=== PATIENT | male | born 1970 | race Caucasian/White ===

== ENCOUNTER 2017-04-06 19:38 | Emergency (ER) | payer BC ==
[2017-04-06] MEDS ORDERED: BABY ASPIRIN 81 MG CHEW PO ONE (19:54)
--- NOTE | 2017-04-06 19:54 | ERPHSYRPT ---
- History of Present Illness Time Seen by Provider: 04/06/17 19:50 Historian: patient Exam Limitations: no limitations Physician History: pt has hs of ablation for v tach about one year ago - no stents normal cath per pt hx no CP now but had felt like a recurrence of arrythmia ; no symptoms now ; CP was brief at time of palpitations Activities at Onset: none Quality: tightness Location: substernal Chest Pain Radiation: no radiation Severity of Pain-Max: mild Severity of Pain-Current: mild Modifying Factors: Improves With: nothing Associated Symptoms: palpitations Prior Chest Pain/Cardiac Workup: cardiac cath, recently seen/treated Nitro Today/Relief: no nitro taken today, complete relief Aspirin Treatment Today: 325 mg x 1, provided by ED Allergies/Adverse Reactions: No Known Drug Allergies Allergy (Verified 04/06/17 19:57) Home Medications: Simvastatin 20 mg PO HS 05/12/14 [History] Propafenone HCl [Propafenone HCl ER] 225 mg PO BID 04/12/16 [History] Clonazepam [Klonopin] 1 mg PO Q6HPRN PRN 04/06/17 [History] Hx Tetanus, Diphtheria Vaccination/Date Given: Yes Hx Influenza Vaccination/Date Given: Yes Hx Pneumococcal Vaccination/Date Given: Yes - Review of Systems Constitutional: No Fever, No Chills Eyes: No Symptoms Ears, Nose, & Throat: No Symptoms Respiratory: No Cough, No Dyspnea Cardiac: Chest Pain (resolved), Palpitations, No Edema, No Syncope Abdominal/Gastrointestinal: No Abdominal Pain, No Nausea, No Vomiting, No Diarrhea Genitourinary Symptoms: No Dysuria Musculoskeletal: No Back Pain, No Neck Pain Skin: No Symptoms, No Rash Neurological: No Symptoms, No Dizziness, No Focal Weakness, No Sensory Changes Psychological: No Symptoms Endocrine: No Symptoms Hematologic/Lymphatic: No Symptoms All Other Systems: Reviewed and Negative - Past Medical History Pertinent Past Medical History: No Neurological History: Epilepsy ENT History: No Pertinent History Cardiac History: Other Respiratory History: No Pertinent History Endocrine Medical History: No Pertinent History Musculoskeletal History: No Pertinent History GI Medical History: No Pertinent History History: No Pertinent History Psycho-Social History: No Pertinent History Male Reproductive Disorders: No Pertinent History Other Medical History: HX OF ELBOW SURGURY (CUBITAL TUNNEL) 2 YEARS AGO AND 1 YEAR AGO HAD TACHICARDIA WITH ABLASION. - Past Surgical History Past Surgical History: Yes Neuro Surgical History: No Pertinent History Cardiac: Other Respiratory: No Pertinent History Gastrointestinal: Hemorrhoidectomy, Hernia Repair Genitourinary: No Pertinent History Musculoskeletal: Other Male Surgical History: No Pertinent History Other Surgical History: right elbow - Social History Smoking Status: Never smoker Exposure to second hand smoke: No Drug Use: none Patient Lives Alone: No - Nursing Vital Signs Nursing Vital Signs: Initial Vital Signs Temperature 97.9 F 04/06/17 19:39 Pulse Rate 72 04/06/17 19:39 Respiratory Rate 20 04/06/17 19:39 Blood Pressure 146/89 04/06/17 19:39 O2 Sat by Pulse Oximetry 98 04/06/17 19:39 Pain Scale Pain Intensity 5 - Physical Exam General Appearance: no apparent distress, alert Eye Exam: PERRL/EOMI, eyes nml inspection Ears, Nose, Throat Exam: normal ENT inspection, moist mucous membranes Neck Exam: normal inspection, non-tender, supple, full range of motion Respiratory Exam: normal breath sounds, lungs clear, No respiratory distress Cardiovascular Exam: regular rate/rhythm, normal heart sounds Gastrointestinal/Abdomen Exam: soft, No tenderness, No mass Back Exam: normal inspection, No CVA tenderness, No vertebral tenderness Extremity Exam: normal inspection, normal range of motion Neurologic Exam: alert, oriented x 3, cooperative, normal mood/affect, sensation nml, No motor deficits Skin Exam: normal color, warm, dry - Course Nursing assessment & vital signs reviewed: Yes EKG Interpreted by Me: Sinus Rhythm, NORMAL AXIS, NORMAL INTERVALS, NORMAL QRS, Non-specific ST Changes - Radiology Exams Chest X-ray Interpretation: Reviewed by me (appears neg) Ordered Tests: Active Orders 24 hr Category Date Time Status Pretzel Packer STAT Care 04/06/17 19:56 Active EKG-ER Only STAT Care 04/06/17 19:54 Active IV Insertion STAT Care 04/06/17 19:54 Active Pulse Oximetry (ED) STAT Care 04/06/17 19:54 Active CHEST 1 VIEW (PORTABLE) Stat Exams 04/06/17 19:56 Taken CBC W DIFF Stat Lab 04/06/17 20:00 Completed CK-Creatinine Phosphokinase Stat Lab 04/06/17 20:00 Completed CMP Stat Lab 04/06/17 20:00 Completed NT PRO BNP Stat Lab 04/06/17 20:00 Completed TROPONIN Q3H Lab 04/06/17 20:00 Completed TROPONIN Q3H Lab 04/06/17 23:00 Ordered TROPONIN Q3H Lab 04/07/17 02:00 Ordered TROPONIN Q3H Lab 04/07/17 05:00 Ordered TROPONIN Q3H Lab 04/07/17 08:00 Ordered Medication Summary Generic Name Dose Route Start Last Admin Trade Name Damian PRN Reason Stop Dose Admin Sodium Chloride 1,000 mls @ 50 mls/hr 04/06/17 20:00 04/06/17 20:17 Sodium Chloride 0.9% 1000 Ml IV 05/06/17 19:59 50 mls/hr .Q20H ADITI Administration Discontinued Medications Generic Name Dose Route Start Last Admin Trade Name Freq PRN Reason Stop Dose Admin Aspirin 324 mg 04/06/17 19:54 04/06/17 20:16 Baby Aspirin 81 Mg Chew PO 04/06/17 19:55 324 mg STAT ONE Administration Aspirin Confirm 04/06/17 20:14 Baby Aspirin 81 Mg Chew Administered 04/06/17 20:15 Dose 324 mg .ROUTE .STK-MED ONE Lab/Rad Data: Laboratory Result Diagrams 04/06/17 20:00 04/06/17 20:00 Laboratory Results 04/06/17 04/06/17 04/06/17 Range/Units 20:00 20:00 20:00 WBC 5.7 (4.0-10.5) K/mm3 RBC 5.06 (4.1-5.6) M/mm3 Hgb 14.6 (12.5-18.0) gm/dl Hct 42.5 (42-50) % MCV 84.0 (78-100) fl MCH 28.9 (26-32) pg MCHC 34.4 (32-36) g/dl RDW 12.8 (11.5-14.0) % Plt Count 201 (150-450) K/mm3 MPV 11.1 H (6-9.5) fl Gran % 50.3 (36.0-66.0) % Lymphocytes % 37.7 (24.0-44.0) % Monocytes % 9.6 (0.0-12.0) % Eosinophils % 1.9 (0.00-5.0) % Basophils % 0.5 (0.0-0.4) % Basophils # 0.03 (0-0.4) Sodium 143 (136-145) mEq/L Potassium 3.6 (3.5-5.1) mEq/L Chloride 105 (98-107) mEq/L Carbon Dioxide 25.7 (21-32) mEq/L Anion Gap 16.3 H (5-15) MEQ/L BUN 17 (9-20) mg/dL Creatinine 1.22 (0.55-1.30) mg/dl Estimated GFR > 60 ML/MIN Glucose 114 H (70-110) MG/DL Calcium 9.1 (8.5-10.1) mg/dL Total Bilirubin 0.40 (0.2-1.0) mg/dL AST 19 (15-37) U/L ALT 21 (12-78) U/L Alkaline Phosphatase 100 (46-116) U/L Creatine Kinase 148 (39-308) U/L Troponin I < 0.017 (0.000-0.056) ng/ml NT-Pro-B Natriuret Pep 56 (0-125) pg/ml Serum Total Protein 8.0 (6.4-8.2) gm/dL Albumin 4.0 (3.4-5.0) g/dL - Progress Progress: improved, re-examined Air Movement: good Progress Note: 04/06/17 21:48 pt remains asympt during obs and wishes to decline admit or further w/u in ER - after discussion of risk and benefit and that undetected cardiac or other pathology may be evolving - he has normal mental status and the capacity to make this choice adn will see his PCP in am and return meantime if further symptoms. Blood Culture(s) Obtained: No Antibiotics given: No Counseled pt/family regarding: lab results, diagnosis, need for follow-up, rad results - Departure Time of Disposition: 21:51 Departure Disposition: Home Clinical Impression: Palpitations, SP ablation Condition: Good Critical Care Time: No Referrals: [facility] [Primary Care Provider] - Additional Instructions: see your DrGeorgina in am as planned and return meantime if symptoms recur; although the intitial testing is negative these tests are limited and there still can be undetected cardiac or other problems evolving;
[2017-04-06] MEDS ORDERED: Sodium Chloride 0.9% 1000 ML 1,000 ML IV SCH (20:00)
[2017-04-06 20:04] LABS: BASOPHIL % 0.5 % (0.0-0.4); Eosinophil % 1.9 % (0.00-5.0); Granulocytes % 50.3 % (36.0-66.0); Lymphocytes % 37.7 % (24.0-44.0); Mean Corpuscular Hemoglobin 28.9 pg (26-32); Mean Platelet Volume 11.1 fl (6-9.5); Monocytes % 9.6 % (0.0-12.0); Platelet Count 201 K/mm3 (150-450); Red Blood Count 5.06 M/mm3 (4.1-5.6); Red Cell Distribution Width 12.8 % (11.5-14.0); White Blood Count 5.7 K/mm3 (4.0-10.5)
[2017-04-06] MEDS ORDERED: BABY ASPIRIN 81 MG CHEW ONE (20:14)
[2017-04-06] MEDS ORDERED: Sodium Chloride 0.9% 1000 ML 1,000 ML ONE (20:14)
[2017-04-06 20:40] LABS: ALKALINE PHOSPHATASE 100 U/L (46-116); ANION GAP 16.3 MEQ/L (5-15); BLOOD UREA NITROGEN 17 mg/dL (9-20); CHLORIDE 105 mEq/L (98-107); Carbon Dioxide 25.7 mEq/L (21-32); Glucose 114 MG/DL (70-110); Potassium 3.6 mEq/L (3.5-5.1); SGOT/AST 19 U/L (15-37); SGPT/ALT 21 U/L (12-78); SODIUM 143 mEq/L (136-145)
[2017-04-06 22:13] VITALS: BP 108/72; PULSE 65; O2SAT 94
--- NOTE | 2017-04-07 08:16 | XRAY ---
Indication: Chest pain. Comparison: June 20, 2014. Portable chest again demonstrates normal heart and lungs. Bony thorax intact.
== END 2017-04-06 22:12 | disposition home or self-care (01) ==
LOC: ED 19:38
DX: R00.2 Palpitations (principal); Z98.890 Other specified postprocedural states
CPT/HCPCS: 36000; 36415; 71010; 80053; 82550; 83880; 84484; 85025; 93005; 93041; 96360; 96361; 99284; A9270-GY

== ENCOUNTER 2020-04-27 10:42 | Day surgery (SDC) | payer BC ==
[2020-04-27] MEDS ORDERED: Lactated Ringers 1,000 ML IV SCH (11:00)
[2020-04-27] MEDS ORDERED: DIPRIVAN 200 MG/20 ML IV ONE (14:56)
[2020-04-27 16:33] VITALS: BP 113/78; PULSE 64; O2SAT 98
--- NOTE | 2020-04-28 09:51 | OP ---
PROCEDURE DATE/TIME: 04/27/2020 1455 PREOPERATIVE DIAGNOSIS: Screening. POSTOPERATIVE DIAGNOSIS: Colon polyps and mild internal hemorrhoidal disease. PROCEDURE: Colonoscopy to cecum with hot snare sessile hepatic flexure colon polyp and hot forceps polypectomy ascending colon polyp. PROCEDURE PERFORMED BY: Caryl Montalvo M.D. COMPLICATIONS: None. ESTIMATED BLOOD LOSS: Minimal. ANESTHESIA: MAC. SPECIMEN: Ascending colon polyp and sessile hepatic flexure polyp. PLAN: Colonoscopy in three years. Telephone postoperative appointment to discuss final pathology findings. HISTORY: This is a 50 year old gentleman presenting for screening colonoscopy. Risks, benefits, alternatives, H&P and consent reviewed with him and confirmed. The patient was seen preoperatively. DESCRIPTION OF PROCEDURE: He was then brought back to the endoscopy suite, laid in left lateral decubitus position. A complete time out performed. First a rectal exam was done. Mild internal hemorrhoids noted. The scope was then inserted and gently advanced to the level of the cecum. At the cecum the appendiceal orifice as well as ileocecal valve were identified. There was a moderate amount of liquid stool throughout the colon. I did have to irrigate quite a bit to get a good view but with irrigation we were able to get a satisfactory view. We carefully withdrew the scope. There was a small ascending colon polyp immediately outside of the cecum this is taken with hot forceps in entirety and sent to pathology. The site was hemostatic. We then further withdrew the scope and there was a difficult to see sessile hepatic flexure polyp between the folds. We irrigated further here and defined the polyp, this is approximately 1 to 1.1 cm in size. It was flat. I was able to take this in entirety with a hot snare with very good resection. It was retrieved and sent to pathology. The site looked excellent after removal. It was hemostatic. Scope then further withdrawn. The patient only had one diverticula. I did not see any other significant diverticular disease. He had mild internal hemorrhoids otherwise the remainder of the scope was negative. The scope completely withdrawn. The patient tolerated the procedure very well and no immediate complications. He is going to be following up with me as an outpatient and due to COVID this will be by telephone to discuss his final pathology results. PLAN: Colonoscopy in three years due to the findings of polyp.
--- NOTE | 2020-04-28 10:04 | HP ---
HISTORY: This is a gentleman who presents for screening colonoscopy. Risks, benefits and alternatives had been discussed with him in detail. PAST MEDICAL/SURGICAL HISTORY: Includes Clostridium difficile. Sleep apnea and uses a BiPAP. Hemorrhoidectomy. Prior colonoscopy. Tennis elbow repair. Umbilical hernia repair. Inguinal hernia repair. Tachycardia with ablation. MEDICATIONS: Medications reviewed in the chart in medication reconciliation. ALLERGIES: NONE. SOCIAL HISTORY: No tobacco. FAMILY HISTORY: No colorectal cancer. Positive for a daughter with Crohn's disease. PHYSICAL EXAMINATION: GENERAL: No acute distress. CVS: Regular rate and rhythm. PULMONARY: Nonlabored. ABDOMEN: Soft, nontender, nondistended. EXTREMITIES: Normal. DIAGNOSIS: Screening colon. PLAN: Colonoscopy.
== END 2020-04-27 16:30 | disposition home or self-care (01) ==
LOC: SDC 10:42
PROVIDERS: ATTEND Surgery
DX: Z12.11 Encounter for screening for malignant neoplasm of colon (principal); K64.8 Other hemorrhoids; D12.2 Benign neoplasm of ascending colon
CPT/HCPCS: J2704

== ENCOUNTER 2021-06-17 07:21 | Day surgery (SDC) | payer BC ==
--- NOTE | 2021-06-14 10:51 | HP ---
DATE OF SURGERY: 06/17/2021 HISTORY OF PRESENT ILLNESS: The patient is a 51-year-old male who presents with complaints of right upper quadrant pain radiating to the back. He has been nausea and vomiting as well. He said the pain has been constant over the past month. He states tomatoes, tomato sauce, chili and foods like this aggravate this. The patient had a HIDA scan showing ejection fraction of 18%. His ultrasound was okay. PAST MEDICAL HISTORY: Hyperlipidemia, anxiety. PAST SURGICAL HISTORY: Heart cath. PVC ablation. Hernia repair. Elbow surgery. Hemorrhoidectomy. ALLERGIES: LEVETIRACETAM. MEDICATIONS: Simvastatin, Klonopin. FAMILY HISTORY: Cancer, diabetes. SOCIAL HISTORY: No alcohol. REVIEW OF SYSTEMS: CONSTITUTIONAL: Denies fever or chills. CHEST: Denies shortness of breath. CVS: Denies chest pain. ABDOMEN: Reports right upper quadrant pain, nausea, vomiting. Denies diarrhea, constipation or rectal bleeding. PHYSICAL EXAMINATION: GENERAL: No acute distress. CHEST: Nonlabored. No shortness of breath. CVS: Regular rate and rhythm. ABDOMEN: Soft, nontender. IMPRESSION: Biliary dyskinesia. PLAN: Laparoscopic cholecystectomy with Dr. Denny Montalvo. As dictated by Yanet Tian NP.
[~2021-06-17 07:21] MED LIST: Lactated Ringers 1,000 ML IV ONE; Sensorcaine 0.25% 10 ML ONE
[2021-06-17] MEDS ORDERED: MEFOXIN 2 GM PREMIX** 2 GM/50 ML ML IV ONE (07:58)
[2021-06-17] MEDS ORDERED: Lactated Ringers 1,000 ML IV ONE (07:59)
[2021-06-17] MEDS ORDERED: Lactated Ringers 1,000 ML IV SCH (08:00)
[2021-06-17] MEDS ORDERED: MEFOXIN 2 GM PREMIX** 2 GM/50 ML ML IV SCH (08:00)
[2021-06-17] MEDS ORDERED: SUBLIMAZE 100 MCG/2 ML ONE ×2 (10:56→11:45)
[2021-06-17] MEDS ORDERED: TORAdol 30 mg Injection ONE (10:56)
[2021-06-17] MEDS ORDERED: Decadron 4 MG INJ ONE (10:56)
[2021-06-17] MEDS ORDERED: Xylocaine-Mpf 2% 5 Ml Vial ONE (10:56)
[2021-06-17] MEDS ORDERED: Zemuron 100 MG/10 ML ONE (10:56)
[2021-06-17] MEDS ORDERED: Zofran 4 MG/2 ML VIAL ONE (10:56)
[2021-06-17] MEDS ORDERED: DIPRIVAN 200 MG/20 ML IV ONE (10:56)
[2021-06-17] MEDS ORDERED: BRIDION 200MG/2ML IV ONE (10:56)
[2021-06-17] MEDS ORDERED: Hydromorphone 1 mg/ml Injection ONE (11:48)
--- NOTE | 2021-06-17 11:52 | OP ---
SURGERY DATE/TIME: 06/17/2021 1056 PREOPERATIVE DIAGNOSIS: Gallbladder dyskinesia. POSTOPERATIVE DIAGNOSIS: Gallbladder dyskinesia. PROCEDURE: Laparoscopic cholecystectomy. SURGEON: Dr. Denny Montalvo. ANESTHESIA: General endotracheal tube. ESTIMATED BLOOD LOSS: None. DRAINS: None. COMPLICATIONS: None. CONDITION: Stable. INDICATIONS: A patient with abnormal HIDA scan. Seen and examined and desired to have cholecystectomy. DESCRIPTION OF PROCEDURE AND FINDINGS: Taken to surgery. General anesthetic, routine prep and drape. Veress needle inserted. Opening pressure of 1, insufflating pressure 14. Four - 5's were placed. Good visualization. There was a linear band of transverse adhesions about 6 inches long a little bit below the rib cage on the right. They were holding up the transverse colon and hepatic flexure. This looked totally asymptomatic and therefore was just left in place. Gallbladder was distended consistent with dyskinesia. Cystic duct defined. Cystic artery defined. Both structures triply clipped and transected. Clips noted across and well approximated. Gallbladder rolled out of gallbladder fossa. The gallbladder delivered through upper abdominal port. Hole closure device used with 0 Vicryl. Field clean and dry. CO2 exsufflated. Skin closed with 4-0 Vicryl and Steri-Strips. The patient tolerated the procedure satisfactorily. Findings discussed with the family in the waiting room.
[2021-06-17 12:41] VITALS: PULSE 80; O2SAT 97
[2021-06-17 13:15] VITALS: BP 162/98
== END 2021-06-17 13:10 | disposition home or self-care (01) ==
LOC: SDC 07:21
PROVIDERS: ATTEND Surgery
DX: K82.8 Other specified diseases of gallbladder (principal)
CPT/HCPCS: J0694; J1100; J1170; J1885; J2405; J2704; J3010

== ENCOUNTER 2025-01-24 19:51 | Emergency (ER) | payer BC ==
[2025-01-24 20:06] VITALS: TEMP 97
[2025-01-24 20:09] VITALS: BP 138/92; PULSE 69; RESP 17; O2SAT 96
[2025-01-24] MEDS: XYLOCAINE 1% HCL 20 ML MDV IJ ONE (20:23)
--- NOTE | 2025-01-24 20:25 | ERPHSYRPT ---
- History of Present Illness Time Seen by Provider: 01/24/25 19:57 Source: patient Exam Limitations: no limitations Patient Subjective Stated Complaint: pt reports approx 30 mins CUSHION FORMER he got a fishing hook stuck in his left index finger, pt reports he tried to remove it himself but was unable. reports tetanus is UTD. Triage Nursing Assessment: pt is aox3, pupils perrl, afebrile, resps easy and non labored, cap refill < 3 seconds, radial pulses strong and equal, pt skin pink warm dry. fishing hook and lure noted to the left index finger, it appears that one small hook of the treble hook is in the tip of the left index finger, pt sensation, ROM intact. Physician History: 54-year-old male presents to the emergency room with finger injury patient reports he was fishing when he got a fishing hook stuck in his finger patient reports his tetanus shot is up-to-date denies any other injuries now in ED for further eval Timing/Duration: today Severity: mild Associated Symptoms: denies symptoms Allergies/Adverse Reactions: levetiracetam [From [facility]] Allergy (Verified 01/24/25 20:16) increased seziures Hx Tetanus, Diphtheria Vaccination/Date Given: Yes Hx Influenza Vaccination/Date Given: No Hx Pneumococcal Vaccination/Date Given: No Immunizations Up to Date: Yes Travel Risk - International Travel Have you traveled outside of the country in past 3 weeks: No - Emerging Infectious Disease Are you exhibiting symptoms associated with any current EIDs: No - Review of Systems Constitutional: No Fever, No Chills Eyes: No Symptoms Ears, Nose, & Throat: No Symptoms Respiratory: No Cough, No Dyspnea Cardiac: No Chest Pain, No Edema, No Syncope Abdominal/Gastrointestinal: No Abdominal Pain, No Nausea, No Vomiting, No Diarrhea Genitourinary Symptoms: No Dysuria Musculoskeletal: No Back Pain, No Neck Pain Skin: No Rash Neurological: No Dizziness, No Focal Weakness, No Sensory Changes Psychological: No Symptoms Endocrine: No Symptoms All Other Systems: Reviewed and Negative - Past Medical History Pertinent Past Medical History: Yes Neurological History: No Pertinent History ENT History: No Pertinent History Cardiac History: Arrhythmia, Hypertension, Other Respiratory History: No Pertinent History Endocrine Medical History: No Pertinent History Musculoskeletal History: No Pertinent History GI Medical History: Other History: Renal Disease Psycho-Social History: Panic Disorder Male Reproductive Disorders: No Pertinent History Other Medical History: HX OF ELBOW SURGURY (CUBITAL TUNNEL) 2 YEARS AGO AND 1 YEAR AGO HAD TACHYCARDIA WITH ABLASION. seizure like symptoms associated with sleep depravation and anxiety in the past last seizure 2016 - Past Surgical History Past Surgical History: Yes Neuro Surgical History: No Pertinent History Cardiac: Other Respiratory: No Pertinent History Gastrointestinal: Hemorrhoidectomy, Hernia Repair Genitourinary: No Pertinent History Musculoskeletal: Orthopedic Surgery, Other Male Surgical History: No Pertinent History Other Surgical History: right elbow. cardiac ablation. colonoscopy with lesions- due to c-diff times 2. left shoudler rotator cuff - Social History Smoking Status: Never smoker Exposure to second hand smoke: No Drug Use: none - Social Determinants of Health Will the patient participate in the screening: Declined to provide - Nursing Vital Signs Nursing Vital Signs: Initial Vital Signs Temperature 97 F 01/24/25 19:57 Pulse Rate 73 01/24/25 19:57 Respiratory Rate 18 01/24/25 19:57 Blood Pressure 140/90 01/24/25 19:57 O2 Sat by Pulse Oximetry 97 01/24/25 19:57 Pain Scale Pain Intensity 3 - Physical Exam General Appearance: no apparent distress, alert Eye Exam: PERRL/EOMI, eyes nml inspection Ears, Nose, Throat Exam: normal ENT inspection, TMs normal, pharynx normal, moist mucous membranes Neck Exam: normal inspection, non-tender, supple, full range of motion Respiratory Exam: normal breath sounds, lungs clear, No respiratory distress Cardiovascular Exam: regular rate/rhythm, normal heart sounds, normal peripheral pulses Gastrointestinal/Abdomen Exam: soft, normal bowel sounds, No tenderness, No mass Back Exam: normal inspection, normal range of motion, No CVA tenderness, No vertebral tenderness Extremity Exam: pelvis stable, other (Patient has a fishing hook stuck in his finger) Neurologic Exam: alert, oriented x 3, cooperative, normal mood/affect, nml cerebellar function, nml station & gait, sensation nml, No motor deficits Skin Exam: normal color, warm, dry, No rash Lymphatic Exam: No adenopathy SpO2: 96 Procedures - Additional Procedures Progress: Patient has a fishing hook stuck in his fingerPatient had foreign body removal numbed up with lidocaine 1% cut the fishing hook remove the hook patient tolerated procedure well neurovasc intact will discharge - Course Nursing assessment & vital signs reviewed: Yes Ordered Tests: Medication Summary Discontinued Medications Generic Name Dose Route Start Last Admin Trade Name Damian PRN Reason Stop Dose Admin Lidocaine HCl 5 ml 01/24/25 20:06 Lidocaine Hcl 1% 20 Ml Mdv 20 Ml Ml IJ 01/24/25 20:07 STAT ONE - Progress Progress: improved - Departure Departure Disposition: Home Clinical Impression: Fish hook in finger Condition: Stable Critical Care Time: No Referrals: [facility] [Primary Care Provider, [facility]] - Follow up/PCP as directed Instructions: Removal of Foreign Body in Skin
== END 2025-01-24 20:32 | disposition home or self-care (01) ==
LOC: ED 19:51
DX: S61.231A Puncture wound without foreign body of left index finger without damage to nail, initial encounter (principal); W26.8XXA Contact with other sharp object(s), not elsewhere classified, initial encounter; W45.8XXA Other foreign body or object entering through skin, initial encounter; I10 Essential (primary) hypertension